=== PATIENT | male | born 1955 | race Caucasian/White ===

== ENCOUNTER 2017-03-19 06:25 | Inpatient (IN) | payer OTHER ==
[~2017-03-19] VITALS: Ht 188 cm; Wt 133.8 kg
[2017-03-19] MEDS ORDERED: LISI10TA5 PO (06:46)
--- NOTE | 2017-03-19 07:01 | NUR ---
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 pt says the only thing he can think of that might have triggered this reaction is cooked oat meal he had yesterday. at this point, pt calm, eubreathing, o2 sat ra 98%.
[2017-03-19] MEDS ORDERED: IPRATROPIUM BROMIDE 0.5 MG/2.5 ML NEBU NEB ONE (07:15)
[2017-03-19] MEDS ORDERED: IV NS 1000 ML 1,000 ML IV ONE (07:15)
[2017-03-19] MEDS ORDERED: diphenhydrAMINE 50 MG/1 ML VIAL IV ONE (07:15)
[2017-03-19] MEDS ORDERED: methylPREDNISolone SOD SUCC 125 MG/2 ML VIAL IV ONE (07:15)
[2017-03-19] MEDS ORDERED: ALBUTEROL SULFATE 2.5 MG/3 ML NEBU NEB ONE (07:15)
[2017-03-19] MEDS ORDERED: IPRATROPIUM BROMIDE 0.5 MG/2.5 ML NEBU ONE (07:26)
[2017-03-19] MEDS ORDERED: ALBUTEROL SULFATE 2.5 MG/ 0.5 ML NEBU ONE (07:27)
[2017-03-19] MEDS ORDERED: diphenhydrAMINE 50 MG/1 ML VIAL ONE (07:29)
[2017-03-19] MEDS ORDERED: methylPREDNISolone SOD SUCC 125 MG/2 ML VIAL ONE (07:30)
--- NOTE | 2017-03-19 08:27 | NUR ---
pt resting, arousable. eubreathing. ra sat 97%.
--- NOTE | 2017-03-19 08:40 | NUR ---
pt co cp 12/30. md notified.
[2017-03-19] MEDS ORDERED: ASPIRIN EC 325 MG TABLET.DR PO SCH (09:00)
[2017-03-19] MEDS ORDERED: ASPIRIN 325 MG TABLET ONE (09:11)
[2017-03-19 09:21] LABS: BASOPHILS % (AUTO) 0.3 % (0.0-2.0); EOSINOPHILS % (AUTO) 0.1 % (0.0-7.0); HEMATOCRIT 47.3 % (40-50); HEMOGLOBIN 15.9 G/DL (14.0-18.0); LYMPHOCYTES # (AUTO) 0.9 K/UL (0.8-4.8); LYMPHOCYTES % (AUTO) 5.7 % (20.5-51.5); MEAN CORPUSCULAR HEMOGLOBIN 30.6 UUG (27.0-31.0); MEAN CORPUSCULAR HGB CONC 34 g/dL (32.0-37.0); MEAN CORPUSCULAR VOLUME 91.2 FL (82.0-92.0); MONOCYTES # (AUTO) 0.1 K/UL (0.1-1.30); MONOCYTES % (AUTO) 0.5 % (0.0-11.0); NEUTROPHILS # (AUTO) 14.2 K/UL (1.8-8.9); NEUTROPHILS % (AUTO) 93.4 % (38.5-71.5); PLATELET COUNT (AUTO) 285 K/UL (150-450); RED BLOOD CELL COUNT(AUTO) 5.19 MIL/UL (4.7-6.1); WHITE BLOOD COUNT (AUTO) 15.3 K/UL (4.0-11.2)
[2017-03-19] MEDS ORDERED: ASPIRIN EC 325 MG TABLET.DR PO ONE (09:28)
[2017-03-19 09:31] LABS: CREATININE 1.2 mg/dL (0.6-1.3); POTASSIUM 4.6 mmol/L (3.5-5.1)
[2017-03-19 09:34] LABS: BAND % (MANUAL) 1 % (0-10); LYMPHOCYTES % (MANUAL) 4 % (20-40); MONOCYTES % (MANUAL) 1 % (2-10); NEUTROPHILS % (MANUAL) 94 % (42-75)
[2017-03-19 09:37] LABS: BILIRUBIN,TOTAL 0.8 mg/dL (0.2-1.0); TOTAL PROTEIN, SERUM 7.1 g/dL (6.4-8.2)
--- NOTE | 2017-03-19 12:11 | NUR ---
RECEIVED PT FROM ER, PT IS ALERT AND RESPONSIVE. RESP IS EVEN AND UNLABORED, NO SOB. NO APPARENT DISTRESS. NO C/O PAIN OR DISCOMFORT AT THIS TIME. PT BEING SEEN BY DR. MACEDO. PT IS SR ON TELEMETRY.
[2017-03-19 12:14] VITALS: BP 113/83
[2017-03-19] MEDS ORDERED: ACETAMINOPHEN 325 MG TABLET PO PRN (12:45)
[2017-03-19] MEDS ORDERED: MAGNESIUM HYDROXIDE 30 ML LIQUID UDC PO PRN (12:45)
[2017-03-19] MEDS ORDERED: ONDANSETRON 4 MG/2 ML VIAL IV PRN (12:45)
[2017-03-19] MEDS ORDERED: Z GUARD REMEDY PASTE 57 GM TUBE TOP PRN (12:45)
[2017-03-19] MEDS: diphenhydrAMINE 50 MG CAPSULE PO PRN ×2 (14:35→21:08)
[2017-03-19] MEDS: IV NS 1000 ML 1,000 ML IV PRN (14:51)
[2017-03-19 16:01] VITALS: BP 119/76
[2017-03-19] MEDS ORDERED: OMEP20TA20 PO (16:52)
--- NOTE | 2017-03-19 18:44 | NUR ---
PT IS ALERT AND RESPONSIVE. RESP IS EVEN AND UNLABORED. NO C/O CHEST PAIN. VSS. STILL NOTED WITH GENERALIZED RASH. PT IS INDEPENDENT WITH ADLS. CONTINENT OF BOWEL AND BLADDER AND AMBULATORY. NEEDS METS BY STAFF.
[2017-03-19 19:00] VITALS: BP 116/66
[2017-03-20 04:00] VITALS: BP 116/76
[2017-03-20] MEDS: diphenhydrAMINE 50 MG CAPSULE PO PRN ×2 (04:09→09:48)
[2017-03-20] MEDS: IV NS 1000 ML 1,000 ML IV PRN (04:09)
--- NOTE | 2017-03-20 05:04 | NUR ---
PT SLEPT WELL THROUGH THE NIGHT AND WAS EASILY AWOKEN, PT DENIED HAVING ANY PAIN OR DIFFICULTY BREATHING, PT'S RASH IS RECEDING, PT DOES COMPLAIN OF SLIGHT ITCHING BUT MEDICATION IS EFFECTIVE, ALL NEEDS MET, SAFETY MEASURES ARE IN PLACE, CALL LIGHT WITHIN REACH, BED ALARM IS ON.
--- NOTE | 2017-03-20 07:15 | NUR ---
RECEIVED PT IN BED, AWAKE ALERT AND RESPONSIVE. RESP IS EVEN AND UNLABORED. NO SOB. NO APPARENT DISTRESS. DENIES ANY PAIN AT THIS TIME. IV FLUID RUNNING AND MEGGAN WELL.
[2017-03-20 07:21] LABS: BASOPHILS % (AUTO) 0.1 % (0.0-2.0); EOSINOPHILS % (AUTO) 0.2 % (0.0-7.0); HEMOGLOBIN 14.2 G/DL (14.0-18.0); LYMPHOCYTES # (AUTO) 1.1 K/UL (0.8-4.8); MEAN CORPUSCULAR HGB CONC 34 g/dL (32.0-37.0); MEAN CORPUSCULAR VOLUME 92.4 FL (82.0-92.0); MONOCYTES # (AUTO) 0.3 K/UL (0.1-1.30); MONOCYTES % (AUTO) 1.2 % (0.0-11.0); NEUTROPHILS # (AUTO) 20.3 K/UL (1.8-8.9); NEUTROPHILS % (AUTO) 93.5 % (38.5-71.5); PLATELET COUNT (AUTO) 302 K/UL (150-450)
[2017-03-20 07:31] LABS: PHOSPHOROUS 3.3 mg/dL (2.5-4.9)
[2017-03-20 07:34] LABS: BILIRUBIN,DIRECT 0.1 mg/dL (0.0-0.2); BILIRUBIN,TOTAL 0.6 mg/dL (0.2-1.0); TOTAL PROTEIN, SERUM 6.6 g/dL (6.4-8.2)
[2017-03-20 07:40] LABS: HEMATOCRIT 42.4 % (40-50); RED BLOOD CELL COUNT(AUTO) 4.59 MIL/UL (4.7-6.1); WHITE BLOOD COUNT (AUTO) 21.7 K/UL (4.0-11.2)
[2017-03-20] MEDS ORDERED: ASPIRIN EC 325 MG TABLET.DR PO SCH (09:00)
[2017-03-20 09:37] LABS: BAND % (MANUAL) 4 % (0-10); LYMPHOCYTES % (MANUAL) 7 % (20-40); MONOCYTES % (MANUAL) 2 % (2-10); NEUTROPHILS % (MANUAL) 87 % (42-75)
[2017-03-20 11:15] LABS: *BILIRUBIN,URIN NEGATIVE (NEGATIVE); *BLOOD, URINE NEGATIVE (NEGATIVE); *CLARITY,URINE CLEAR (CLEAR); *COLOR,URINE LIGHT YELLOW (YELLOW); *KETONES,URINE NEGATIVE (NEGATIVE); *PROTEIN,URINE NEGATIVE (NEGATIVE); *UROBILINOGEN,URINE 0.2 E.U./dl (NORMAL); LEUKOCYTE ESTERASE ,URINE NEGATIVE (NEGATIVE); NITRITE, URINE NEGATIVE (NEGATIVE); UGLUCOSE NEGATIVE (NEGATIVE)
[2017-03-20 12:10] VITALS: BP 123/74
[2017-03-20 12:14] LABS: BACTERIA,URINE NONE SEEN /HPF (NONE SEEN); RBC,URINE NONE SEEN /HPF (0-3); SQUAMOUS EPITHELIAL CELL,UR FEW /HPF (NONE SEEN); WBC,URINE NONE SEEN /HPF (0-3)
[2017-03-20] MEDS ORDERED: FAMO-132 PO (13:15)
[2017-03-20] MEDS ORDERED: DIPH50CA37 PO (13:15)
--- NOTE | 2017-03-20 14:15 | NUR ---
PT BEING DISCHARGED. A&OX4. NO APPARENT DISTRESS. RESP IS EVEN AND UNLABORED. NO SOB. DISCHARGE INSTRUCTIONS GIVEN AND PT ACKNOWLEDGED UNDERSTANDING. INFORMED PT REGRADING NEW PRESCRIPTIONS, PER PT DOES NOT WANT TO TALK TO PHARMACIST. IV REMOVED, NO BLEEDING NOTED. DRESSING APPLIED TO SITE. PT IS DRIVING SELF HOME. LIST OF BELONGINGS SIGNED AND ITEMS TAKEN WITH PT. PT ACCOMPANIED TO OUTSIDE OF HOSPITAL.
== END 2017-03-20 14:25 | disposition home or self-care (01) | DRG 596 ==
LOC: ER 06:32 → TELE 11:21 → MED 17:00
PROVIDERS: ADMIT Internal Medicine; ATTEND Internal Medicine
DX: L51.8 Other erythema multiforme (principal); T36.8X5A Adverse effect of other systemic antibiotics, initial encounter; Y92.89 Other specified places as the place of occurrence of the external cause; K21.9 Gastro-esophageal reflux disease without esophagitis; I11.9 Hypertensive heart disease without heart failure; D72.829 Elevated white blood cell count, unspecified; T38.0X5A Adverse effect of glucocorticoids and synthetic analogues, initial encounter; Z91.018 Allergy to other foods; Z87.01 Personal history of pneumonia (recurrent); Z79.899 Other long term (current) drug therapy; R06.02 Shortness of breath; Z66 Do not resuscitate
CPT/HCPCS: 36415; 70030-TC; 71010; 83735; 84100; 85025; 87086; 93005; 93307; J1200; J2405; J2930; J3590; J7030; Q0163